=== PATIENT | female | born 1950 | race African-American/Black ===

== ENCOUNTER 2017-08-17 21:02 | Emergency (ER) | payer MEDICARE ==
[2017-08-17] MEDS ORDERED: Ondansetron HCl/PF 4 MG/2 ML Vial ONE (21:21)
[2017-08-17 21:34] LABS: PTT 33.3 SEC (22.9-36.1); Prothrombin Time 13.2 SEC (12.0-14.7)
[2017-08-17 21:40] LABS: Anion Gap 15 mmol/L (10-20); BUN (Urea Nitrogen) 14 mg/dL (9.8-20.1); Calc. Creatinine Clearance 0 mL/min (70-130); Calcium 9.9 mg/dL (7.8-10.44); Carbon Dioxide 26 mmol/L (23-31); Chloride 99 mmol/L (98-107); Estimated GFR-MDRD 57; Glucose 110 mg/dL (80-115); Potassium 3.4 mmol/L (3.5-5.1); Sodium 137 mmol/L (136-145)
[2017-08-17 21:43] LABS: Band 5 % (5-11); Eosinophils 2 % (0-10); Hemoglobin 11.5 g/dL (12.0-16.0); Lymphocytes 46 % (21-51); MDiff Complete? YES; Mean Corpuscular HGB CONC 32.1 g/dL (32.0-36.0); Mean Corpuscular Hemoglobin 28.6 pg (27.0-31.0); Mean Corpuscular Volume 89.1 fl (81.0-99.0); Mean Platelet Volume 7.1 fL (7.4-10.4); Metamyelocyte 1 % (0-0); Monocytes 5 % (0-10); Neutrophil 41 % (42-75); PLT Morphology Comment Appears Adequate; Platelet Count 378 thou/uL (130-400); RBC Distribution Width 12.9 % (11.5-14.5); RBC Morphology Normal; Red Blood Cell (RBC) Count 4.01 mill/uL (4.20-5.40); White Blood Cell (WBC) Count 6.6 thou/uL (4.8-10.8)
[2017-08-17 21:45] LABS: CKMB 2.5 ng/mL (0-6.6); Troponin I Less than 0.010 ng/mL (< 0.028)
--- NOTE | 2017-08-17 21:55 | RAD ---
PORTABLE CHEST: 08/17/17 HISTORY: Chest pain. Lungs are clear. No evidence of infiltrate or vascular congestion. Heart size is normal. IMPRESSION: Unremarkable chest. POS: [id number]
== END 2017-08-17 22:20 | disposition short-term general hospital (02) ==
LOC: NAV ERS 21:02
DX: R07.9 Chest pain, unspecified (principal); I10 Essential (primary) hypertension; Z79.899 Other long term (current) drug therapy
CPT/HCPCS: 71045; 80048; 82553; 83880; 84484; 85025; 85610; 85730; 93005; 94760; 96374; 96375; 96376; J2270; J2405